=== PATIENT | female | born 1970 | race Caucasian/White ===

== ENCOUNTER 2023-11-08 04:07 | Day surgery (SDC) | payer BC, OTHER ==
[2023-11-03 12:25] VITALS: BMI 24.3
[2023-11-08] MEDS ORDERED: ONDANSETRON 4 MG/2 ML VIAL IVPUSH PRN (07:45)
[2023-11-08] MEDS ORDERED: oxyCODONE HCL 5 MG TABLET PO PRN (07:45)
[2023-11-08] MEDS ORDERED: IBUPROFEN 400 MG TABLET (FP) PO PRN (09:20)
[2023-11-08] MEDS ORDERED: ACETAMINOPHEN 325 MG TABLET (FP) PO PRN (09:20)
[2023-11-08] MEDS ORDERED: FENTANYL CITRATE/PF 50 MCG/ML VIAL ONE ×2 (09:26→09:37)
[2023-11-08] MEDS ORDERED: MIDAZOLAM HCL 2 MG/2 ML SINGLE DOSE VIAL ONE ×2 (09:26→10:01)
[2023-11-08] MEDS ORDERED: SUCCINYLCHOLINE CHLORIDE 200 MG/10 ML SYRINGE ONE (09:27)
[2023-11-08] MEDS ORDERED: PROPOFOL 20 ML ONE ×2 (09:27)
[2023-11-08] MEDS ORDERED: KETOROLAC TROMETHAMINE 30 MG/1 ML VIAL ONE (09:47)
[2023-11-08] MEDS ORDERED: LIDOCAINE HCL/PF 2% SDV 5ML VIAL ONE (09:47)
[2023-11-08] MEDS ORDERED: DEXAMETHASONE SOD PHOSPHATE 4 MG/1 ML VIAL ONE (09:47)
[2023-11-08] MEDS ORDERED: ONDANSETRON 4 MG/2 ML VIAL ONE (09:47)
[2023-11-08] MEDS ORDERED: ACETAMINOPHEN INJECTION 100 ML IVPB ONE (09:48)
[2023-11-08] MEDS: LACTATED RINGERS SOLUTION 1,000 ML IV SCH (10:30)
[2023-11-08 12:31] VITALS: BP 120/56; PULSE 63; RESP 16; TEMP 98.4
== END 2023-11-08 12:51 | disposition home or self-care (01) ==
LOC: JASU-SURG 04:07
PROVIDERS: ATTEND Obstetrics & Gynecology
PROC: 0UB98ZZ Excision of Uterus, Via Natural or Artificial Opening Endoscopic (ICD-10-PCS; principal; 2023-11-08 09:00)
DX: N92.0 Excessive and frequent menstruation with regular cycle (principal); D25.0 Submucous leiomyoma of uterus; N84.0 Polyp of corpus uteri; N84.1 Polyp of cervix uteri
CPT/HCPCS: 81025; 88305-TC; 88341-TC; 88342-TC; 94760; J0131

== ENCOUNTER 2024-07-27 06:45 | Day surgery (SDC) | payer BC, OTHER ==
[2024-07-27] MEDS ORDERED: ACETAMINOPHEN 1000 MG/100 ML BAG IVPB ONE (07:00)
[2024-07-27] MEDS: PHENAZOPYRIDINE HCL 100 MG TABLET (FP) PO ONE (07:04)
[2024-07-27] MEDS ORDERED: BUPIVACAINE HCL/PF 0.5% (5MG/ML) 10 ML VIAL ONE (07:21)
[2024-07-27] MEDS ORDERED: LIDOCAINE 1%/EPI 1:100000 (20 ML MULTI DOSE VIAL) ONE (07:21)
[2024-07-27] MEDS ORDERED: INDOCYANINE GREEN 25 MG/10 ML VIAL IVPUSH ONE (07:21)
[2024-07-27] MEDS ORDERED: TRANEXAMIC ACID 1000 MG/10 ML VIAL IVPUSH ONE (07:30)
[2024-07-27] MEDS ORDERED: ROCURONIUM BROMIDE 50 MG/5 ML SYRINGE ONE (07:31)
[2024-07-27] MEDS ORDERED: PROPOFOL 20 ML ONE (07:31)
[2024-07-27] MEDS ORDERED: MIDAZOLAM HCL 2 MG/2 ML SINGLE DOSE VIAL ONE (07:31)
[2024-07-27] MEDS ORDERED: SEVOFLURANE 250 ML BTL ONE (07:33)
[2024-07-27] MEDS ORDERED: ONDANSETRON 4 MG/2 ML VIAL ONE ×2 (07:54→09:18)
[2024-07-27] MEDS ORDERED: ceFAZolin SODIUM 1 GM VIAL ONE (07:54)
[2024-07-27] MEDS ORDERED: DEXAMETHASONE SOD PHOSPHATE 4 MG/1 ML VIAL ONE (07:54)
[2024-07-27] MEDS: ceFAZolin SODIUM 1 GM VIAL IVPB ONE (07:58)
[2024-07-27] MEDS ORDERED: CEFAZOLIN 2 GM in DEXTROSE 5%-WATER - 100 ML IVPB ONE (08:00)
[2024-07-27] MEDS ORDERED: HYDROmorphone HCl 2 MG/ML VIAL ONE (08:01)
[2024-07-27] MEDS ORDERED: SODIUM CHLORIDE 0.9% P/F 10 ML VIAL IJ ONE (08:02)
[2024-07-27] MEDS ORDERED: GLYCOPYRROLATE 0.2 MG/1 ML VIAL ONE (09:18)
[2024-07-27] MEDS ORDERED: KETOROLAC TROMETHAMINE 30 MG/1 ML VIAL ONE (09:28)
[2024-07-27] MEDS ORDERED: DOCUSATE SODIUM 100 MG CAPSULE (FP) PO PRN (10:16)
[2024-07-27] MEDS ORDERED: SIMETHICONE 80 MG TAB.CHEW (FP) PO PRN (10:16)
[2024-07-27] MEDS ORDERED: oxyCODONE HCL 5 MG TABLET PO PRN ×2 (10:16)
[2024-07-27] MEDS ORDERED: BISACODYL 5 MG TABLET.DR (FP) PO PRN (10:16)
[2024-07-27] MEDS ORDERED: ONDANSETRON 4 MG/2 ML VIAL IVPUSH PRN ×2 (10:16→11:04)
[2024-07-27] MEDS ORDERED: LACTATED RINGERS SOLUTION 1,000 ML IV SCH (11:15)
[2024-07-27] MEDS: CEFAZOLIN 1 GM/D5W 1 GM/50 ML BAG IVPB SCH (16:30)
[2024-07-27] MEDS: ceFAZolin SODIUM 1 GM VIAL ONE (16:30)
[2024-07-27] MEDS: ACETAMINOPHEN 1000 MG/100 ML BAG IVPB SCH ×2 (16:35)
[2024-07-27] MEDS: ACETAMINOPHEN INJECTION 100 ML ONE (16:35)
[2024-07-27 16:48] LABS: HEMATOCRIT 34.9 % (32.4-45.2); HEMOGLOBIN 11.3 GM/dL (10.7-15.3); MCH 29.9 pg (25.7-33.7); MCHC 32.5 g/dl (32.0-36.0); MEAN CELL VOLUME 91.9 fl (80-96); MEAN PLT VOLUME 7.5 fl (7.5-11.1); PLATELET COUNT 329 10^3/uL (134-434); RDW 14.4 % (11.6-15.6); WHITE BLOOD COUNT 7.4 K/mm3 (4.0-10.0)
[2024-07-27 17:07] LABS: CHLORIDE 103 mmol/L (98-107); POTASSIUM 4.9 mmol/L (3.5-5.1); SODIUM 135 mmol/L (136-145)
[2024-07-27] MEDS ORDERED: IBUPROFEN 800 MG/8 ML IJ IVPB ONE (17:07)
[2024-07-27 17:08] LABS: ANION GAP 7 mmol/L (4-13); BLOOD UREA NITROGEN 14.3 mg/dL (7-18); CO2 25 mmol/L (21-32); GLUCOSE,RANDOM 189 mg/dL (74-106)
[2024-07-27] MEDS: IBUPROFEN 800 MG/8 ML IJ IVPB SCH (17:13)
[2024-07-27 17:32] VITALS: RESP 20; TEMP 97.3
[2024-07-27 17:33] VITALS: BP 110/70; PULSE 80
[2024-07-27] MEDS ORDERED: NITROFURANTOIN MONOHYD/M-CRYST 100 MG CAPSULE PO SCH (22:00)
[2024-07-28] MEDS ORDERED: IBUPROFEN 600 MG TABLET (FP) PO SCH (10:00)
[2024-07-28] MEDS ORDERED: ENOXAPARIN NA (PORCINE) 40 MG/0.4 ML DISP.SYRIN SQ SCH (10:00)
[2024-07-28] MEDS ORDERED: ACETAMINOPHEN 500 MG TABLET (FP) PO SCH (14:00)
== END 2024-07-27 18:15 | disposition home or self-care (01) ==
LOC: JASUSAT 06:45
PROVIDERS: ATTEND Obstetrics & Gynecology
PROC: 0UT9FZZ Resection of Uterus, Via Natural or Artificial Opening With Percutaneous Endoscopic Assistance (ICD-10-PCS; principal; 2024-07-27 07:30)
PROC: 0UT7FZZ Resection of Bilateral Fallopian Tubes, Via Natural or Artificial Opening With Percutaneous Endoscopic Assistance (ICD-10-PCS; 2024-07-27 07:30)
PROC: 0UB54ZZ Excision of Right Fallopian Tube, Percutaneous Endoscopic Approach (ICD-10-PCS; 2024-07-27 07:30)
DX: D25.9 Leiomyoma of uterus, unspecified (principal); N84.0 Polyp of corpus uteri; N83.8 Other noninflammatory disorders of ovary, fallopian tube and broad ligament
CPT/HCPCS: 58571; 58662; S2900; 36415; 80048; 81025; 85027; 86850; 86900; 86901; 88305-TC; 88307-TC; 88341-TC; 88342-TC; 94760; J0131